=== PATIENT | male | born 1955 | race Two or more races ===

== ENCOUNTER 2025-02-22 09:37 | Outpatient (CLI) | payer OTHER ==
[~2025-02-22] VITALS: Ht 180.3 cm; Wt 104.3 kg
[2025-02-22] MEDS ORDERED: ADENOSINE 90 MG/30 ML INJ IV ONE (10:19)
[2025-02-22] MEDS ORDERED: ADENOSINE 88 MG in GIVE UN-DILUTED 0 ML IV ONE (11:15)
== END 2025-02-22 17:00 | disposition home or self-care (01) ==
LOC: Rad HDHVI 09:37
PROVIDERS: ATTEND Internal Medicine Cardiovascular Disease
DX: I44.7 Left bundle-branch block, unspecified (principal); R94.31 Abnormal electrocardiogram [ECG] [EKG]; I10 Essential (primary) hypertension; R06.02 Shortness of breath; E11.21 Type 2 diabetes mellitus with diabetic nephropathy; E11.40 Type 2 diabetes mellitus with diabetic neuropathy, unspecified
CPT/HCPCS: 78452; 93017; 93306; A9500; J0153

== ENCOUNTER 2025-04-24 11:02 | Outpatient (CLI) | payer OTHER ==
[2025-04-24 11:07] VITALS: BP 171/89; PULSE 95; RESP 16; O2SAT 98
[2025-04-24 11:21] VITALS: BP 166/87; PULSE 95; RESP 16; O2SAT 98
[2025-04-24] MEDS ORDERED: ASPI1TAB20 PO ×2 (16:40)
[2025-04-24] MEDS ORDERED: LISI-285 PO ×2 (16:40)
[2025-04-24] MEDS ORDERED: METF-370 PO ×2 (16:40)
[2025-04-24] MEDS ORDERED: DAPA1TAB4 PO ×2 (16:40)
[2025-04-24] MEDS ORDERED: INSLANTI SC ×2 (16:40)
== END 2025-04-24 17:00 | disposition home or self-care (01) ==
LOC: CHF HDHVI 11:02
PROVIDERS: ATTEND Internal Medicine Cardiovascular Disease
DX: Z01.810 Encounter for preprocedural cardiovascular examination (principal); I50.1 Left ventricular failure, unspecified; I44.7 Left bundle-branch block, unspecified
CPT/HCPCS: 93005; G0463

== ENCOUNTER 2025-04-27 06:32 | Day surgery (SDC) | payer OTHER ==
[2025-04-24 12:56] LABS: Hematocrit 43.0 % (41.0-53.0); Hemoglobin 14.3 g/dL (13.5-17.5); Mean Corpuscular Hemoglobin 29.1 pg (28.0-32.0); Mean Corpuscular Volume 87.4 fL (80.0-100.0); Nucleated Red Blood Cells % 0.0 %
[2025-04-24 13:08] LABS: INR 0.94 (0.9-1.15); Partial Thromboplastin Time 28.8 SEC (24.5-34.5); Prothrombin Time 10.0 sec (9.3-11.8)
[2025-04-24 13:27] LABS: Chloride 100 mmol/L (98-107); Potassium 4.5 mmol/L (3.5-5.1); Sodium 137 mmol/L (136-145)
[2025-04-24 13:28] LABS: Anion Gap 8 (5-15); Calcium 9.7 mg/dL (8.7-10.4); Carbon Dioxide 29 mmol/L (20-31)
[2025-04-24 13:33] LABS: BUN/Creatinine Ratio 24.4 (10.0-20.0)
[2025-04-24 13:34] LABS: Blood Urea Nitrogen 33 mg/dL (9-23); Glucose 361 mg/dL (74-106)
[~2025-04-27] VITALS: Ht 180.3 cm; Wt 103.9 kg
[~2025-04-27 06:32] MED LIST: ASPI1TAB20 PO; DAPA1TAB4 PO; INSLANTI SC; LISI-285 PO; METF-370 PO
[2025-04-27] MEDS ORDERED: IODIXANOL 320MG/ML 100ML BTL IV ONE (07:29)
[2025-04-27] MEDS ORDERED: ANGIOMAX 250 MG VIAL IV ONE (07:42)
[2025-04-27] MEDS ORDERED: fentaNYL CITRATE 100 MCG/2 ML VL ONE (07:42)
[2025-04-27] MEDS ORDERED: SODIUM CHL 0.9% 0 ML ONE (07:43)
[2025-04-27] MEDS ORDERED: LIDOCAINE 2%HCL (LOCAL ANESTH.) INJ 20ML MDV ONE (07:43)
[2025-04-27] MEDS ORDERED: MIDAZOLAM HCL 2MG/2ML 2ml VIAL (1mg/ml) ONE (07:43)
--- NOTE | 2025-04-27 08:17 | DVHHP ---
ADMIT DATE: 04/27/2025 HISTORY OF PRESENT ILLNESS: The patient is 69 years old with: * History of history. * History of peripheral vascular disease. * A history of diabetes, diabetic neuropathy, vasculopathy, and nephropathy. CURRENT MEDICATIONS: Include Coreg, lisinopril, Farxiga, metformin, aspirin, and Lantus insulin. The patient's ejection fraction is slightly diminished by echocardiography as well as a stress test and perfusion abnormality is not significant, but because of the decrease in left ventricular ejection fraction, it is felt that it is prudent for the patient to undergo left heart catheterization to rule out coronary artery disease and to determine whether the patient has epicardial disease versus small vessel disease. REVIEW OF SYSTEMS: At this time, he denies any fever, chills, melena, hematochezia, hematemesis, hemoptysis or hematuria. He denies any recent travel. No history of lung disease. He denies any recent trauma. Denies any inflammatory bowel disease or irritable bowel syndrome. No history of connective tissue disease disorder as well. SOCIAL HISTORY: No history of tobacco or alcohol use. No drug use. PHYSICAL EXAMINATION: VITAL SIGNS: Blood pressure is 138/80, pulse 70, O2 saturation 98% on room air. HEENT: Pupils are reactive. Funduscopic exam shows no AV nicking. No exudates. No papilledema. Sclerae anicteric. Extraocular muscles are intact. Tympanic membranes are negative. Oral mucosa moist. Posterior pharynx without any exudates. NECK: No cervical adenopathy. No supraclavicular adenopathy. No JVD. Carotid is 2+, symmetrical with normal upstroke and contour. PULMONARY: Clear to auscultation. No rhonchi, no wheezes. Tympanic to percussion. CARDIOVASCULAR: Regular rate. PMI is slightly diffuse, laterally displaced. There is a 2/6 systolic murmur along the left sternal border without any radiation. ABDOMEN: Obese, unable to appreciate organomegaly. Liver approximately 5 cm by percussion. Stool Guaiac is negative. No epigastric tenderness. No suprapubic tenderness. No CVA tenderness. NEUROLOGIC: DTRs are 2+ and symmetrical. Cranial nerves 2-12 are within normal limits. Sensory and motor modalities are intact. ASSESSMENT AND PLAN: Thus, the patient with diminished left ventricular ejection fraction, systolic heart failure. The patient is now to undergo left heart catheterization. Further recommendations after the angiogram. Jamison Adams MD SA/NORI TID: [id number] RECEIPT: [id number]
--- NOTE | 2025-04-27 08:48 | DVHDS ---
DATE OF DISCHARGE: 04/27/2025 DISCHARGE DIAGNOSES: * Dilated cardiomyopathy. * Heart failure with reduced ejection fraction, chronic. HOSPITAL COURSE: The patient is clinically stable. Coronary angiography showed epicardial vessels to be patent. EF is around 40-45% with an LVEDP of 10 mmHg. At this time, conservative medical management. No surgical or catheter-based intervention is required. We will continue to follow the patient. Stable at the time of discharge. DISPOSITION: Home. ACTIVITY: As instructed. DIET: 2 g sodium, 1800 calorie ADA diet. Jamison Adams MD SA/BRITNEY TID: [id number] RECEIPT: [id number]
--- NOTE | 2025-04-27 10:19 | DVHOP ---
DATE OF SURGERY: 04/27/2025 PROCEDURES PERFORMED: * Selective left and right coronary artery ventriculogram. * Right iliac angiography. * Conscious sedation. PROCEDURE: The patient was prepped and draped in sterile conditions. 1% Xylocaine was used to anesthetize the right groin. Using Cook needle, the right femoral artery was engaged with Seldinger technique. A 6-Qatari sheath in the right femoral artery using a 6-Qatari JL4 catheter, a 6-Qatari JR4 catheter. Selective left and right coronary angiography was performed. Using a 6-Qatari pigtail catheter, ventriculogram was done. Total contrast used was 40 mL of Optiray. Total fluoroscopy was 1 minute. RESULTS: * Left main patent. * Left anterior descending artery was patent. * Circumflex was patent. * Right coronary artery was patent. * Left ventricular function shows global hypokinesis with estimated EF around 40%. * LVEDP of 10 mmHg with left ventricular systolic pressure of 120, no gradient across the aortic valve. CONCLUSION: Thus, the patient with diminished left ventricular ejection fraction, EF around 40%-45%. At this time, conservative medical management, aggressive risk modification; however, the patient does not require any catheter-based or surgical intervention at this time. We will continue to monitor left ventricular ejection fraction at this time and titrate with afterload reduction and preload reduction. We will continue to follow the patient. Jamison Adams MD SA/MELANIE/BOBBY TID: [id number] RECEIPT: [id number]
== END 2025-04-27 10:15 | disposition home or self-care (01) ==
LOC: CATH 06:32
PROVIDERS: ATTEND Internal Medicine Cardiovascular Disease
DX: R07.89 Other chest pain (principal); I11.0 Hypertensive heart disease with heart failure; I50.20 Unspecified systolic (congestive) heart failure; I42.0 Dilated cardiomyopathy; E11.40 Type 2 diabetes mellitus with diabetic neuropathy, unspecified; E11.51 Type 2 diabetes mellitus with diabetic peripheral angiopathy without gangrene; E11.21 Type 2 diabetes mellitus with diabetic nephropathy; Z79.82 Long term (current) use of aspirin; Z79.4 Long term (current) use of insulin; Z79.899 Other long term (current) drug therapy
CPT/HCPCS: 36415; 80048; 85025; 85610; 85730; 93458; C1760; C1769; C1894; J1644; J2250; J3010; J7030; Q9967; 99152